=== PATIENT | female | born 1975 | race American Indian/Alaskan Native ===

== ENCOUNTER 2020-01-25 18:35 | Emergency (ER) | payer SELFPAY ==
[2020-01-25 18:41] VITALS: BP 146/85
--- NOTE | 2020-01-25 18:51 | Event Note ---
ED Screening Note ED Screening Note: right lower dental pain began 2-3 days ago states she was eating some hi-chew candies the day before it started she last saw a dentist 7 months ago no fever, no n/v/d This initial assessment/diagnostic orders/clinical plan/treatment(s) is/are subject to change based on patients health status, clinical progression and re- assessment by fellow clinical providers in the ED. Further treatment and workup at subsequent clinical providers discretion. Patient/guardian urged not to elope from the ED as their condition may be serious if not clinically assessed and managed.
--- NOTE | 2020-01-25 18:55 | Emergency Department Report ---
ED ENT HPI - General Chief complaint: Dental/Oral Stated complaint: RT SIDE TOOTHACHE EXTREME PAIN Time Seen by Provider: 01/25/20 18:48 Source: patient Mode of arrival: Ambulatory Limitations: No Limitations - History of Present Illness Initial comments: pt is a 44 yo female who presents to the ED with c/o right lower dental pain began 2-3 days ago. she states she was eating some hi-chew candies the day before it started. she denies any fever, n/v/d, chills, facial swelling. she last saw a dentist 7 months ago. she denies any allergies to meds. - Related Data Previous Rx's Medication Instructions Recorded Last Taken Type Ibuprofen [Motrin 600 MG tab] 600 mg PO Q8H PRN #20 tablet 01/25/20 Unknown Rx Penicillin Vk [Veetids TAB] 500 mg PO QID 7 Days #56 tablet 01/25/20 Unknown Rx Allergies Allergy/AdvReac Type Severity Reaction Status Date / Time No Known Allergies Allergy Unverified 01/25/20 18:37 ED Dental HPI - General Chief complaint: Dental/Oral Stated complaint: RT SIDE TOOTHACHE EXTREME PAIN Time Seen by Provider: 01/25/20 18:48 Source: patient Mode of arrival: Ambulatory Limitations: No Limitations - Related Data Previous Rx's Medication Instructions Recorded Last Taken Type Ibuprofen [Motrin 600 MG tab] 600 mg PO Q8H PRN #20 tablet 01/25/20 Unknown Rx Penicillin Vk [Veetids TAB] 500 mg PO QID 7 Days #56 tablet 01/25/20 Unknown Rx Allergies Allergy/AdvReac Type Severity Reaction Status Date / Time No Known Allergies Allergy Unverified 01/25/20 18:37 ED Review of Systems ROS: Stated complaint: RT SIDE TOOTHACHE EXTREME PAIN Other details as noted in HPI Comment: All other systems reviewed and negative ED Past Medical Hx - Past Medical History Previous Medical History?: No - Surgical History Past Surgical History?: Yes Additional Surgical History: hysterectomy 2013. double bunion ectomy 2016. right shoulder surgery - Social History Smoking Status: Current Every Day Smoker Substance Use Type: None - Medications Home Medications: Home Medications Medication Instructions Recorded Confirmed Last Taken Type Ibuprofen [Motrin 600 MG tab] 600 mg PO Q8H PRN #20 tablet 01/25/20 Unknown Rx Penicillin Vk [Veetids TAB] 500 mg PO QID 7 Days #56 tablet 01/25/20 Unknown Rx ED Physical Exam - General Limitations: No Limitations General appearance: alert, other (appears to be in mild discomfort secondary to the tooth) - Head Head exam: Present: atraumatic, normocephalic - Eye Eye exam: Present: normal appearance - ENT ENT exam: Present: normal orophraynx, mucous membranes moist, other (very poor dentition, several missing teeth, several fillings, pt has pain to the left lower frontal tooth, there is a very small area of erythema and edema to the gumline, no flutuance, uvula is midline, no uvular edema, no uvular deviation, no facial swelling, no muffled voice, no trismus, no tongue elevation, no submandibular swelling) - Respiratory Respiratory exam: Present: normal lung sounds bilaterally. Absent: respiratory distress, wheezes, rales, rhonchi, stridor, chest wall tenderness, accessory muscle use, decreased breath sounds, prolonged expiratory - Cardiovascular Cardiovascular Exam: Present: normal rhythm, normal heart sounds - Neurological Exam Neurological exam: Present: alert, oriented X3 - Psychiatric Psychiatric exam: Present: normal affect, normal mood - Skin Skin exam: Present: warm, dry, intact ED Course Vital Signs 01/25/20 18:37 Temperature 97.5 F L Pulse Rate 110 H Respiratory 18 Rate Blood Pressure 146/85 O2 Sat by Pulse 99 Oximetry ED Medical Decision Making - Medical Decision Making pt is a 44 yo female who presents to the ED with c/o right lower dental pain began 2-3 days ago. she states she was eating some hi-chew candies the day before it started. she denies any fever, n/v/d, chills, facial swelling. she last saw a dentist 7 months ago. she denies any allergies to meds. Vitals with mild tachycardia likely secondary to dental pain, patient is afebrile, no hypoxia, blood pressure stable. on exam: very poor dentition, several missing teeth, several fillings, pt has pain to the left lower frontal tooth, there is a very small area of erythema and edema to the gumline, no flutuance, uvula is midline, no uvular edema, no uvular deviation, no facial swelling, no muffled voice, no trismus, no tongue elevation, no submandibular swelling. Could be related to early dental abscess versus gingivitis. Patient given prescription for antibiotics and ibuprofen. advised pt please take medication as prescribed. please follow up with a dentist. it is very important you follow up with a dentist. return to the emergency room for any new or worsening symptoms Critical care attestation.: If time is entered above; I have spent that time in minutes in the direct care of this critically ill patient, excluding procedure time. ED Disposition Clinical Impression: Dental caries, Gingivitis Disposition: TO HOME OR SELFCARE Is pt being admited?: No Does the pt Need Aspirin: No Condition: Stable Instructions: Dental Abscess (ED), Gingivitis (ED) Additional Instructions: please take medication as prescribed. please follow up with a dentist. it is very important you follow up with a dentist. return to the emergency room for any new or worsening symptoms Prescriptions: Ibuprofen [Motrin 600 MG tab] 600 mg PO Q8H PRN #20 tablet PRN Reason: Pain Penicillin Vk [Veetids TAB] 500 mg PO QID 7 Days #56 tablet Referrals: [facility] [Outside] - 3-5 Days [facility] [Outside] - 3-5 Days Time of Disposition: 18:53 Print Language: ANDORRAN
== END 2020-01-25 20:05 | disposition home or self-care (01) ==
LOC: ED 18:35
DX: K02.9 Dental caries, unspecified (principal); K05.00 Acute gingivitis, plaque induced; F17.200 Nicotine dependence, unspecified, uncomplicated; Z90.710 Acquired absence of both cervix and uterus; Z79.899 Other long term (current) drug therapy; Z98.890 Other specified postprocedural states
CPT/HCPCS: 99282

== ENCOUNTER 2020-01-29 13:20 | Emergency (ER) | payer SELFPAY ==
[2020-01-29 13:37] VITALS: BP 143/83
--- NOTE | 2020-01-29 14:01 | Emergency Department Report ---
ED ENT HPI - General Chief complaint: Dental/Oral Stated complaint: TOOTH PAIN WORSEN Time Seen by Provider: 01/29/20 13:56 Source: patient Mode of arrival: Ambulatory Limitations: No Limitations - History of Present Illness Initial comments: pt is a 44 yo female who presents to the ED with c/o dental pain that has been ongiong for a week. she was seen in the ED 4 days ago and prescribed penicillin VK and ibuprofen. she states that the penicillin causes vomiting when she takes it. she states she also now has a yeast infection from the penicillin causing vaginal itching. she has not yet follow up with a dentist. she denies any fever, facial swelling, difficuluty swallowing, difficulty speaking. PMHx chronic bronchitis. no allergies to meds. PShx hysterectomy. - Related Data Previous Rx's Medication Instructions Recorded Last Taken Type Ibuprofen [Motrin 600 MG tab] 600 mg PO Q8H PRN #20 tablet 01/25/20 Unknown Rx Penicillin Vk [Veetids TAB] 500 mg PO QID 7 Days #56 tablet 01/25/20 Unknown Rx Clindamycin [Clindamycin CAP] 450 mg PO TID 7 Days #63 capsule 01/29/20 Unknown Rx Fluconazole [Diflucan TAB] 150 mg PO ONCE #1 tablet 01/29/20 Unknown Rx Ondansetron [Zofran Odt] 4 mg PO Q8HR PRN #14 tab.rapdis 01/29/20 Unknown Rx Allergies Allergy/AdvReac Type Severity Reaction Status Date / Time No Known Allergies Allergy Verified 01/29/20 13:31 ED Dental HPI - General Chief complaint: Dental/Oral Stated complaint: TOOTH PAIN WORSEN Time Seen by Provider: 01/29/20 13:56 Source: patient Mode of arrival: Ambulatory Limitations: No Limitations - Related Data Previous Rx's Medication Instructions Recorded Last Taken Type Ibuprofen [Motrin 600 MG tab] 600 mg PO Q8H PRN #20 tablet 01/25/20 Unknown Rx Penicillin Vk [Veetids TAB] 500 mg PO QID 7 Days #56 tablet 01/25/20 Unknown Rx Clindamycin [Clindamycin CAP] 450 mg PO TID 7 Days #63 capsule 01/29/20 Unknown Rx Fluconazole [Diflucan TAB] 150 mg PO ONCE #1 tablet 01/29/20 Unknown Rx Ondansetron [Zofran Odt] 4 mg PO Q8HR PRN #14 tab.rapdis 01/29/20 Unknown Rx Allergies Allergy/AdvReac Type Severity Reaction Status Date / Time No Known Allergies Allergy Verified 01/29/20 13:31 ED Review of Systems ROS: Stated complaint: TOOTH PAIN WORSEN Other details as noted in HPI Comment: All other systems reviewed and negative ED Past Medical Hx - Past Medical History Previous Medical History?: No - Surgical History Past Surgical History?: Yes Additional Surgical History: hysterectomy 2012. double bunion ectomy 2015. right shoulder surgery - Social History Smoking Status: Current Every Day Smoker Substance Use Type: Alcohol - Medications Home Medications: Home Medications Medication Instructions Recorded Confirmed Last Taken Type Ibuprofen [Motrin 600 MG tab] 600 mg PO Q8H PRN #20 tablet 01/25/20 Unknown Rx Penicillin Vk [Veetids TAB] 500 mg PO QID 7 Days #56 tablet 01/25/20 Unknown Rx Clindamycin [Clindamycin CAP] 450 mg PO TID 7 Days #63 capsule 01/29/20 Unknown Rx Fluconazole [Diflucan TAB] 150 mg PO ONCE #1 tablet 01/29/20 Unknown Rx Ondansetron [Zofran Odt] 4 mg PO Q8HR PRN #14 tab.rapdis 01/29/20 Unknown Rx ED Physical Exam - General Limitations: No Limitations General appearance: alert, in no apparent distress - Head Head exam: Present: atraumatic, normocephalic - Eye Eye exam: Present: normal appearance - ENT ENT exam: Present: normal orophraynx, mucous membranes moist, other (very poor dentition, several missing teeth, small amount of induration present to the right frontal gumline with ttp, uvula is midline, no uvular edema, no uvular deviation, no trismus, no tongue elevation, no muffled voice, no submandibular swelling) - Respiratory Respiratory exam: Present: normal lung sounds bilaterally. Absent: respiratory distress, wheezes, rales, rhonchi, stridor, chest wall tenderness, accessory muscle use, decreased breath sounds, prolonged expiratory - Cardiovascular Cardiovascular Exam: Present: regular rate, normal rhythm, normal heart sounds. Absent: systolic murmur, diastolic murmur, rubs, gallop - Neurological Exam Neurological exam: Present: alert, oriented X3 - Psychiatric Psychiatric exam: Present: normal affect, normal mood - Skin Skin exam: Present: warm, dry, intact ED Course Vital Signs 01/29/20 13:35 Temperature 98.3 F Pulse Rate 79 Respiratory 18 Rate Blood Pressure 143/83 O2 Sat by Pulse 100 Oximetry ED Medical Decision Making - Medical Decision Making pt is a 44 yo female who presents to the ED with c/o dental pain that has been ongiong for a week. she was seen in the ED 4 days ago and prescribed penicillin VK and ibuprofen. she states that the penicillin causes vomiting when she takes it. she states she also now has a yeast infection from the penicillin causing vaginal itching. she has not yet follow up with a dentist. she denies any fever, facial swelling, difficuluty swallowing, difficulty speaking. PMHx chronic bronchitis. no allergies to meds. PShx hysterectomy. VSS. on exam: very poor dentition, several missing teeth, small amount of induration present to the right frontal gumline with ttp, uvula is midline, no uvular edema, no uvular deviation, no trismus, no tongue elevation, no muffled voice, no submandibular swelling. Patient given prescription for Zofran, clindamycin, Diflucan. Advised patient please take medication as prescribed. please follow up with a dentist. it is very important that you follow up with a dentist. return to the emergency room for any new or worsening symptoms. take medication with food. Apparently patient became irate that I did not write narcotics for her small dental abscess, she asked Yvette, nurse educator to see a doctor, Yvette advised patient that she could see a doctor and she went to find an available provider, patient then eloped from the emergency department before ever being seen by a doctor, she did not take her prescriptions or her referrals Critical care attestation.: If time is entered above; I have spent that time in minutes in the direct care of this critically ill patient, excluding procedure time. ED Disposition Clinical Impression: Dental caries, Dental abscess, Vaginal itching Disposition: ELOPED Is pt being admited?: No Does the pt Need Aspirin: No Condition: Stable Instructions: Dental Abscess (ED), Dental Caries (ED), Vulvovaginal Candidiasis (ED) Additional Instructions: please take medication as prescribed. please follow up with a dentist. it is very important that you follow up with a dentist. return to the emergency room for any new or worsening symptoms. take medication with food. Prescriptions: Clindamycin [Clindamycin CAP] 450 mg PO TID 7 Days #63 capsule Fluconazole [Diflucan TAB] 150 mg PO ONCE #1 tablet Ondansetron [Zofran Odt] 4 mg PO Q8HR PRN #14 tab.rapdis PRN Reason: Nausea And Vomiting Referrals: [facility] [Outside] - 3-5 Days [facility] [Outside] - 3-5 Days Time of Disposition: 14:01 Print Language: ITALIAN
== END 2020-01-29 14:05 | disposition left against medical advice (07) ==
LOC: ED 13:20
DX: K02.9 Dental caries, unspecified (principal); K04.7 Periapical abscess without sinus; L29.9 Pruritus, unspecified; F17.200 Nicotine dependence, unspecified, uncomplicated; Z98.890 Other specified postprocedural states; Z90.710 Acquired absence of both cervix and uterus; Z79.1 Long term (current) use of non-steroidal anti-inflammatories (NSAID); Z79.2 Long term (current) use of antibiotics; Z79.899 Other long term (current) drug therapy
CPT/HCPCS: 99281

== ENCOUNTER 2021-07-04 11:57 | Emergency (ER) | payer SELFPAY ==
[2021-07-04 12:21] VITALS: BP 127/78
[2021-07-04] MEDS ORDERED: HYDROcodone/ACETAMINOPHEN 10-325MG TAB PO ONE (12:29)
--- NOTE | 2021-07-04 13:39 | XRay Report ---
XR finger(s) 2+V LT INDICATION / CLINICAL INFORMATION: left finger pain. COMPARISON: None available. FINDINGS: BONES/JOINT(S): No acute fracture or subluxation. No significant degenerative changes. SOFT TISSUES: No significant abnormality. ADDITIONAL FINDINGS: None. Signer Name: Cezar Ferrer MD Signed: 07/04/2021 1:35 PM Workstation Name: [id number]
--- NOTE | 2021-07-04 13:57 | Emergency Department Report ---
ED Upper Extremity Inj HPI - General Chief Complaint: Extremity Injury, Upper Stated Complaint: FINGER INJURY Time Seen by Provider: 07/04/21 12:23 Source: patient Mode of arrival: Ambulatory Limitations: No Limitations - History of Present Illness Initial Comments: This is a 45-year-old female nontoxic, well nourished in appearance, no acute signs of distress presents to the ED with c/o of left middle finger pain x1 day. Patient stated that she slammed it against a door. Patient denies any other trauma. Patient denies any numbness, tingling, fever, chills, nausea, vomiting, chest pain, shortness of breath, headache, stiff neck. Patient denies any joint swelling or joint redness. Patient some decreased range of motion due to pain. Patient denies any allergies or significant past medical history. MD Complaint: Injury to:: left, finger -: days(s) Other Extremity Injury: Fingers: Left Severity scale (0 -10): 8 Improves With: immobilization Worsens With: movement of extremity Associated Symptoms: denies other symptoms. denies: weakness, numbness, neck pain, suspects foreign body, nausea/vomiting, heard/felt popping sensat - Related Data Previous Rx's Medication Instructions Recorded Last Taken Type Ibuprofen [Motrin 600 MG tab] 600 mg PO Q8H PRN #20 tablet 01/25/20 Unknown Rx Penicillin Vk [Veetids TAB] 500 mg PO QID 7 Days #56 tablet 01/25/20 Unknown Rx Clindamycin [Clindamycin CAP] 450 mg PO TID 7 Days #63 capsule 01/29/20 Unknown Rx Fluconazole (Nf) [Diflucan TAB] 150 mg PO ONCE #1 tablet 01/29/20 Unknown Rx Ondansetron [Zofran Odt] 4 mg PO Q8HR PRN #14 tab.rapdis 01/29/20 Unknown Rx Naproxen 500 mg PO Q12H PRN #12 tablet 07/04/21 Unknown Rx Allergies Allergy/AdvReac Type Severity Reaction Status Date / Time No Known Allergies Allergy Verified 01/29/20 13:31 ED Review of Systems ROS: Stated complaint: FINGER INJURY Other details as noted in HPI Comment: All other systems reviewed and negative Constitutional: denies: chills, fever Eyes: denies: eye pain, eye discharge, vision change ENT: denies: ear pain, throat pain Respiratory: denies: cough, shortness of breath, wheezing Cardiovascular: denies: chest pain, palpitations Endocrine: no symptoms reported Gastrointestinal: denies: abdominal pain, nausea, diarrhea Genitourinary: denies: urgency, dysuria, discharge Musculoskeletal: denies: back pain, joint swelling, arthralgia Skin: denies: rash, lesions Neurological: denies: headache, weakness, paresthesias Psychiatric: denies: anxiety, depression Hematological/Lymphatic: denies: easy bleeding, easy bruising ED Past Medical Hx - Past Medical History Previous Medical History?: No - Surgical History Past Surgical History?: Yes Additional Surgical History: hysterectomy 2012. double bunion ectomy 2016. right shoulder surgery - Social History Smoking Status: Current Every Day Smoker Substance Use Type: Alcohol - Medications Home Medications: Home Medications Medication Instructions Recorded Confirmed Last Taken Type Ibuprofen [Motrin 600 MG tab] 600 mg PO Q8H PRN #20 tablet 01/25/20 Unknown Rx Penicillin Vk [Veetids TAB] 500 mg PO QID 7 Days #56 tablet 01/25/20 Unknown Rx Clindamycin [Clindamycin CAP] 450 mg PO TID 7 Days #63 capsule 01/29/20 Unknown Rx Fluconazole (Nf) [Diflucan TAB] 150 mg PO ONCE #1 tablet 01/29/20 Unknown Rx Ondansetron [Zofran Odt] 4 mg PO Q8HR PRN #14 tab.rapdis 01/29/20 Unknown Rx Naproxen 500 mg PO Q12H PRN #12 tablet 07/04/21 Unknown Rx ED Physical Exam - General Limitations: No Limitations General appearance: alert, in no apparent distress - Head Head exam: Present: atraumatic, normocephalic - Eye Eye exam: Present: normal appearance - Respiratory Respiratory exam: Absent: respiratory distress - Cardiovascular Cardiovascular Exam: Present: regular rate - Extremities Exam Extremities exam: Present: normal inspection, full ROM, tenderness, normal capillary refill. Absent: joint swelling - Expanded Upper Extremity Exam Left General: Present: normal inspection Forearm Wrist exam: Present: normal inspection, full ROM. Absent: tenderness, swelling, abrasion, laceration, ecchymosis, deformity, crepidus, dislocation, erythema, tenderness over anatomical snuff box, pain with axial thumb loading Hand Wrist exam: Present: full ROM, tenderness, ecchymosis. Absent: swelling, abrasion, laceration, deformity, crepidus, dislocation, erythema, amputation, nail avulsion, subungual hematoma Vascular: Present: normal capillary refill. Absent: vascular compromise (Neurovascular within normal limits) - Neurological Exam Neurological exam: Present: alert, oriented X3 - Psychiatric Psychiatric exam: Present: normal affect, normal mood - Skin Skin exam: Present: warm, dry, intact, normal color. Absent: rash ED Course Vital Signs 07/04/21 12:20 Temperature 98.5 F Pulse Rate 75 Respiratory 16 Rate Blood Pressure 127/78 O2 Sat by Pulse 100 Oximetry - Reevaluation(s) Reevaluation #1: 07/04/21 14:02 Patient is speaking in full sentences with no signs of distress noted. ED Medical Decision Making - Radiology Data [address] [address] XRay Report Signed Patient: CALVIN CUMMINGS MR#: [id number] : 1975 Acct:[id number] Age/Sex: 45 / F ADM Date: 07/04/21 Loc: ED Attending Dr: Ordering Physician: ELIANA CLARK NP Date of Service: 07/04/21 Procedure(s): XR finger(s) 2+V LT Accession Number(s): [id number] cc: ELIANA CLARK NP Fluoro Time In Minutes: XR finger(s) 2+V LT INDICATION / CLINICAL INFORMATION: left finger pain. COMPARISON: None available. FINDINGS: BONES/JOINT(S): No acute fracture or subluxation. No significant degenerative changes. SOFT TISSUES: No significant abnormality. ADDITIONAL FINDINGS: None. Signer Name: Cezar Ferrer MD Signed: 07/04/2021 1:35 PM Workstation Name: [id number] Transcribed By: POLLY Dictated By: Cezar Ferrer MD Electronically Authenticated By: Cezar Ferrer MD Signed Date/Time: 07/04/211334 DD/ 34 TD/TT: - Medical Decision Making This is a 45-year-old female that presents with left finger strain. Patient is stable and was examined by me. X-ray has been obtained and dictated by the radiologist. Patient is notified of the x-ray report with noted by the patient. Patient does have normal ROM with some tenderness and no joint swelling. no joint redness or swelling. Not warm to touch. No signs of cellulites present. Patient was instructed to RICE therapy. Patient received norco for pain with stating that symptoms of pain improved and stated family member will drive patient home after discharge due to possible drowsiness. Patient is discharged with naproxen. At time of discharge, the patient does not seem toxic or ill in appearance. No acute signs of distress noted. Patient agrees to discharge treatment plan of care. No further questions noted by the patient. Critical care attestation.: If time is entered above; I have spent that time in minutes in the direct care of this critically ill patient, excluding procedure time. ED Disposition Clinical Impression: Strain of left middle finger Disposition: 01 HOME / SELF CARE / HOMELESS Is pt being admited?: No Does the pt Need Aspirin: No Condition: Stable Instructions: RICE Therapy for Routine Care of Injuries, [id number] Additional Instructions: Follow-up with a orthopedic doctor in 3-5 days or if symptoms worsen and continue return to emergency room as soon as possible. No physical activity that extremity until cleared by orthopedic doctor Prescriptions: Naproxen 500 mg PO Q12H PRN #12 tablet PRN Reason: Pain , Severe (7-10) Referrals: PRIMARY CARE, [Primary Care Provider] - 3-5 Days KANDY BANERJEE MD [Staff Physician] - 3-5 Days Forms: Work/School Release Form(ED) Time of Disposition: 14:05
== END 2021-07-04 14:47 | disposition home or self-care (01) ==
LOC: ED 11:57
DX: S66.313A Strain of extensor muscle, fascia and tendon of left middle finger at wrist and hand level, initial encounter (principal); F10.20 Alcohol dependence, uncomplicated; F17.200 Nicotine dependence, unspecified, uncomplicated; Z90.710 Acquired absence of both cervix and uterus; X58.XXXA Exposure to other specified factors, initial encounter; Y93.89 Activity, other specified; Y92.89 Other specified places as the place of occurrence of the external cause; Y99.8 Other external cause status
CPT/HCPCS: 99283

== ENCOUNTER 2022-05-01 14:30 | Emergency (ER) | payer SELFPAY | END 2022-05-02 14:05 | disposition left against medical advice (07) | LOC: ED 14:30 | DX: S69.90XA Unspecified injury of unspecified wrist, hand and finger(s), initial encounter (principal); Z53.21 Procedure and treatment not carried out due to patient leaving prior to being seen by health care provider; X58.XXXA Exposure to other specified factors, initial encounter; Y93.89 Activity, other specified; Y92.89 Other specified places as the place of occurrence of the external cause; Y99.8 Other external cause status ==